=== PATIENT | male | born 1985 | race Caucasian/White ===

== ENCOUNTER 2019-11-22 12:39 | Emergency (ER) | payer MEDICAID ==
[~2019-11-22] VITALS: Ht 165.1 cm; Wt 113.6 kg
[2019-11-22] MEDS ORDERED: IBUP-2759 PO (12:49)
[2019-11-22] MEDS ORDERED: ACET-2865 PO (12:49)
[2019-11-22] MEDS ORDERED: IBUPROFEN 600 MG TABLET PO ONE (14:30)
[2019-11-22] MEDS ORDERED: ACETAMINOPHEN 325 MG TABLET PO ONE (14:30)
[2019-11-22] MEDS ORDERED: AMOX TR/POT CLAV 875 MG/125 MG TABLET PO ONE (15:00)
[2019-11-22] MEDS ORDERED: CIPROFLOXACIN HCL 0.2%/HYDROCORT 1% 10 ML OTIC SUSPENSION AD ONE (15:00)
[2019-11-22 15:50] VITALS: BP 114/60
== END 2019-11-22 16:42 | disposition home or self-care (01) ==
LOC: EMS 12:57
DX: H60.91 Unspecified otitis externa, right ear (principal); R50.9 Fever, unspecified
CPT/HCPCS: Z7502; Z7610